=== PATIENT | male | born 1955 | race Caucasian/White ===

== ENCOUNTER 2022-08-25 09:07 | Day surgery (SDC) | payer BC, MEDICARE ==
[~2022-08-25] VITALS: Ht 180.3 cm; Wt 86.3 kg
[2022-08-25] VITALS (7 sets, daily range): BP systolic 123–166; BP diastolic 83–97
[2022-08-25] MEDS ORDERED: LISI40TA13 PO (09:59)
[2022-08-25] MEDS ORDERED: ERGO500093 PO (09:59)
[2022-08-25] MEDS ORDERED: VITA-268 PO (09:59)
[2022-08-25] MEDS ORDERED: AMLO5TAB16 PO (09:59)
[2022-08-25] MEDS ORDERED: ATOR10TA70 PO (09:59)
[2022-08-25] MEDS ORDERED: METF-438 PO (09:59)
[2022-08-25] MEDS ORDERED: FLO0.4C PO (09:59)
[2022-08-25] MEDS ORDERED: FOLI1TAB27 PO (09:59)
[2022-08-25] MEDS ORDERED: ASPI-611 PO (09:59)
[2022-08-25] MEDS ORDERED: MULT-1085 PO (09:59)
[2022-08-25] MEDS ORDERED: METO-411 PO (09:59)
[2022-08-25] MEDS ORDERED: CYAN500T71 PO (09:59)
[2022-08-25 11:36] LABS: APPEARANCE,CSF CLEAR; CSF SUPERNATANT COLOR COLORLESS
[2022-08-25 11:37] LABS: CSF RBC 0 /CU MM (0); CSF VOLUME 16.8 ML; CSF WBC CT 0 /CU MM (0-5); TUBE# COUNTED 4
[2022-08-25 12:00] LABS: GLUCOSE,CSF 131 MG/DL (40-75); TOTAL PROTEIN,CSF 63 MG/DL (30-60)
== END 2022-08-25 12:25 | disposition home or self-care (01) ==
LOC: SSTAY O 09:07
PROVIDERS: ATTEND Psychiatry & Neurology Neurology
DX: R53.1 Weakness (principal); R20.2 Paresthesia of skin; R27.0 Ataxia, unspecified; G62.2 Polyneuropathy due to other toxic agents; G35 Multiple sclerosis; I10 Essential (primary) hypertension; E78.5 Hyperlipidemia, unspecified; E11.9 Type 2 diabetes mellitus without complications; G37.9 Demyelinating disease of central nervous system, unspecified; N40.0 Benign prostatic hyperplasia without lower urinary tract symptoms; I25.2 Old myocardial infarction; H53.2 Diplopia; F17.290 Nicotine dependence, other tobacco product, uncomplicated; F10.20 Alcohol dependence, uncomplicated; Z79.899 Other long term (current) drug therapy
CPT/HCPCS: 36415; 62328; 77003; 82040; 82042; 82164; 82784; 82945; 83873; 83916; 84157; 87496; 87798; 89051; A4620